=== PATIENT | female | born 1980 | race Caucasian/White ===

== ENCOUNTER 2019-06-10 22:09 | Emergency (ER) | payer BC ==
[~2019-06-10] VITALS: Ht 162.6 cm; Wt 70.0 kg
[2019-06-10] MEDS ORDERED: EFFEXOR37.5 MG PO (22:20)
[2019-06-10 23:27] VITALS: BP 146/94
== END 2019-06-10 23:30 | disposition home or self-care (01) | DRG 563 ==
LOC: ED 22:09
DX: S93.601A Unspecified sprain of right foot, initial encounter (principal); F17.210 Nicotine dependence, cigarettes, uncomplicated; X50.0XXA Overexertion from strenuous movement or load, initial encounter; Y92.009 Unspecified place in unspecified non-institutional (private) residence as the place of occurrence of the external cause

== ENCOUNTER 2020-01-23 | Emergency (ER) | payer BC ==
[~2020-01-23] MED LIST: EFFEXOR37.5 MG PO
[2020-01-23] MEDS ORDERED: FLEXERIL PO (20:44)
[2020-01-23] MEDS ORDERED: NAPROXEN500 MG PO (20:44)
== END 2020-01-23 21:35 | disposition home or self-care (01) | DRG 563 ==
DX: S83.91XA Sprain of unspecified site of right knee, initial encounter (principal); F17.210 Nicotine dependence, cigarettes, uncomplicated; W01.0XXA Fall on same level from slipping, tripping and stumbling without subsequent striking against object, initial encounter; Y93.E5 Activity, floor mopping and cleaning; Y92.009 Unspecified place in unspecified non-institutional (private) residence as the place of occurrence of the external cause

== ENCOUNTER 2021-09-02 00:05 | Emergency (ER) | payer BC ==
[~2021-09-02] VITALS: Ht 162.6 cm; Wt 72.0 kg
[~2021-09-02 00:05] MED LIST changes: +FLEXERIL PO; +NAPROXEN500 MG PO
[2021-09-02 01:43] LABS: URINE BILIRUBIN - DIPSTICK NEGATIVE (NEGATIVE); URINE BLOOD DIPSTICK LARGE (NEGATIVE); URINE COLOR YELLOW; URINE GLUCOSE - DIPSTICK NEGATIVE (NEGATIVE); URINE KETONE 40 mg/dL (NEGATIVE); URINE LEUK ESTERASE NEGATIVE (NEGATIVE); URINE NITRITE - DIPSTICK NEGATIVE (Negative); URINE PROTEIN - DIPSTICK TRACE mg/dL (NEG-TRACE); URINE UROBILINOGEN - DIPSTICK 0.2 E.U./dL (0.2)
[2021-09-02 01:55] LABS: HEMATOCRIT 40.5 % (37.0-47.0); IMMATURE GRANULOCYTES 0.5 % (0.0-5.0); MEAN CORPUSCULAR HGB 31.1 pG CALC (26.0-32.0); MEAN CORPUSCULAR HGB CONC 34.6 g/dL CAL (32.0-36.0); NEUT# 10.8 thou/uL (2.00-7.15); RED BLOOD COUNT 4.5 mill/uL (4.20-5.60); RED CELL DISTRI WIDTH 12.6 % (11.5-15.5)
[2021-09-02 01:56] LABS: URINE MUCUS FEW hpf (NONE-FEW); URINE RBC 50-100 RBC/hpf (0-5); URINE SQUAMOUS EPITHELIAL CELL FEW EPI/hpf (0-FEW); URINE WBC 0-2 WBC/hpf (0-5)
[2021-09-02 02:40] VITALS: BP 110/66
== END 2021-09-02 02:40 | disposition home or self-care (01) | DRG 833 ==
LOC: ED 00:05
DX: O46.90 Antepartum hemorrhage, unspecified, unspecified trimester (principal); O99.340 Other mental disorders complicating pregnancy, unspecified trimester; F41.9 Anxiety disorder, unspecified; F32.A Depression, unspecified; O99.330 Smoking (tobacco) complicating pregnancy, unspecified trimester; F17.210 Nicotine dependence, cigarettes, uncomplicated; Z3A.00 Weeks of gestation of pregnancy not specified

== ENCOUNTER 2022-05-12 19:24 | Emergency (ER) | payer BC ==
[~2022-05-12] VITALS: Ht 162.6 cm; Wt 69.5 kg
[2022-05-12] MEDS ORDERED: AMOXICILLIN500 MG PO (20:36)
[2022-05-12 20:59] VITALS: BP 128/74
== END 2022-05-12 21:00 | disposition home or self-care (01) | DRG 605 ==
LOC: ED 19:24
PROC: 0HQFXZZ Repair Right Hand Skin, External Approach (ICD-10-PCS; principal; 2022-05-12)
DX: S61.252A Open bite of right middle finger without damage to nail, initial encounter (principal); F32.A Depression, unspecified; F41.9 Anxiety disorder, unspecified; F17.210 Nicotine dependence, cigarettes, uncomplicated; W61.91XA Bitten by other birds, initial encounter; Y92.009 Unspecified place in unspecified non-institutional (private) residence as the place of occurrence of the external cause

== ENCOUNTER 2023-09-15 15:34 | Emergency (ER) | payer MEDICAID ==
[~2023-09-15] VITALS: Ht 162.6 cm; Wt 75.0 kg
[~2023-09-15 15:34] MED LIST changes: +AMOXICILLIN500 MG PO
[2023-09-15 16:51] VITALS: BP 117/79
== END 2023-09-15 16:55 | disposition home or self-care (01) ==
LOC: ED 15:34
DX: Z23 Encounter for immunization (principal); T14.8XXD Other injury of unspecified body region, subsequent encounter; W55.01XD Bitten by cat, subsequent encounter; F41.9 Anxiety disorder, unspecified; F32.A Depression, unspecified; F17.200 Nicotine dependence, unspecified, uncomplicated